=== PATIENT | female | born 1965 | race Caucasian/White ===

== ENCOUNTER 2017-08-03 10:32 | Observation (INO) | payer OTHER ==
[~2017-08-03] VITALS: Ht 170.2 cm; Wt 92.5 kg
[~2017-08-03 10:32] MED LIST: Z.0.NO CURRENT MEDS
[2017-08-03 10:45] VITALS: BP 155/77; PULSE 60; RESP 18; TEMP 97.9; O2SAT 100
--- NOTE | 2017-08-03 11:37 | PD ---
HPI Chief Complaint: Head Injury Time Seen by Provider: 11:28 Travel History International Travel<30 days: No Contact w/Intl Traveler<30days: No Traveled to known affect area: No History of Present Illness HPI Patient 52-year-old female presents emergency department for evaluation of head injury. 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 The history above was obtained with some effort as the patient has quite a bizarre affect and mental status. When asked when she initially had the shunt placed she speaks in relative terms and states it was the year after December 30, 2000. She is unable to say 2001 however. She states the shunt is still in place and continues to a knowledge that her shunt is still an even after her CAT scan does not show any CT evidence of her shunt still being in her brain. When asked to speak with the patient's son about her she was read several phone numbers and identified her own phone number is being her sounds. When I called this number she states that it was actually her and still confused as to why was calling her. When ultimately I was able to speak with her son about her he states that her memory has been going over the past few months, she is supposed to see a neurologist in the near future but does not have an appointment as of yet. She apparently goes on long drives and is losing her way at home as well as having some difficulty walking and not intermittent spasm of her left upper extremity. 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 She was treated with radiation and no surgical removal. [facility] Past Medical History Depression: Yes Hypertension: Yes Past Surgical History Neurologic Surgery: Yes (2001 BRAIN TUMOR- SHUNT/ RADIATION [place]) Social History Alcohol Use: No Tobacco Use: No Substance Use: No Allergies-Medications (Allergen,Severity, Reaction): Coded Allergies: No Known Allergies (Verified Allergy, Unknown, 08/03/17) Reported Meds & Prescriptions Reported Meds & Active Scripts Active No Active Prescriptions or Reported Medications Review of Systems Except as stated in HPI: all other systems reviewed are Neg Physical Exam Narrative GENERAL: Well-developed well-nourished no obvious distress SKIN: Focused skin assessment warm/dry. HEAD: Atraumatic. Normocephalic. EYES: Pupils equal and round. No scleral icterus. No injection or drainage. ENT: No nasal bleeding or discharge. Mucous membranes pink and moist. NECK: Trachea midline. No JVD. CARDIOVASCULAR: Regular rate and rhythm. No murmur appreciated. RESPIRATORY: No accessory muscle use. Clear to auscultation. Breath sounds equal bilaterally. GASTROINTESTINAL: Abdomen soft, non-tender, nondistended. Hepatic and splenic margins not palpable. MUSCULOSKELETAL: No obvious deformities. No clubbing. No cyanosis. No edema. NEUROLOGICAL: Awake and alert. Cranial nerves II through XII are grossly intact and nonfocal, 5 out of 5 strength in all 4 extremities. Patient startles easily when talked to almost like she is arousing from sleep, she has a spasm of her left upper extremity which is a fast which were lasting for fraction of a second. She is able to ambulate and does not have any cerebellar dysfunction that I can identify peer PSYCHIATRIC: Startles easily as above, somewhat difficult to obtain history from and oriented to person place and situation but not time. Data Data Last Documented VS Vital Signs Date Time Temp Pulse Resp B/P (MAP) Pulse Ox O2 Delivery O2 Flow Rate FiO2 08/03/17 14:00 52 16 148/77 (100) 97 Room Air 08/03/17 10:[address] Brain W/O Iv Contrast(Rout) (08/03/17 ) Shunt Series (08/03/17 ) Electrocardiogram (08/03/17 11:35) Complete Blood Count With Diff (08/03/17 11:35) Comprehensive Metabolic Panel (08/03/17 11:35) Prothrombin Time / Inr (Pt) (08/03/17 11:35) Act Partial Throm Time (Ptt) (08/03/17 11:35) Urinalysis - C+S If Indicated (08/03/17 11:35) Blood Glucose (08/03/17 11:35) Ecg Monitoring (08/03/17 11:35) Iv Access Insert/Monitor (08/03/17 11:35) Oximetry (08/03/17 11:35) Sodium Chloride 0.9% Flush (Ns Flush) (08/03/17 11:45) Drug Screen, Random Urine (08/03/17 11:35) Alcohol (Ethanol) (08/03/17 11:35) Mri Brain W&W/O Contrast (08/03/17 ) Admit Order (Ed Use Only) (08/03/17 ) Labs Laboratory Tests Test 08/03/17 12:10 08/03/17 14:19 White Blood Count 5.3 TH/MM3 Red Blood Count 4.23 MIL/MM3 Hemoglobin 13.1 GM/DL Hematocrit 37.1 % Mean Corpuscular Volume 87.7 FL Mean Corpuscular Hemoglobin 30.9 PG Mean Corpuscular Hemoglobin Concent 35.3 % Red Cell Distribution Width 13.1 % Platelet Count 238 TH/MM3 Mean Platelet Volume 8.6 FL Neutrophils (%) (Auto) 52.1 % Lymphocytes (%) (Auto) 34.2 % Monocytes (%) (Auto) 8.9 % Eosinophils (%) (Auto) 3.5 % Basophils (%) (Auto) 1.3 % Neutrophils # (Auto) 2.8 TH/MM3 Lymphocytes # (Auto) 1.8 TH/MM3 Monocytes # (Auto) 0.5 TH/MM3 Eosinophils # (Auto) 0.2 TH/MM3 Basophils # (Auto) 0.1 TH/MM3 CBC Comment DIFF FINAL Differential Comment Prothrombin Time 10.0 SEC Prothromb Time International Ratio 1.0 RATIO Activated Partial Thromboplast Time 24.5 SEC Blood Urea Nitrogen 9 MG/DL Creatinine 0.77 MG/DL Random Glucose 86 MG/DL Total Protein 7.8 GM/DL Albumin 3.7 GM/DL Calcium Level 9.1 MG/DL Alkaline Phosphatase 83 U/L Aspartate Amino Transf (AST/SGOT) 25 U/L Alanine Aminotransferase (ALT/SGPT) 28 U/L Total Bilirubin 0.4 MG/DL Sodium Level 140 MEQ/L Potassium Level 4.0 MEQ/L Chloride Level 106 MEQ/L Carbon Dioxide Level 27.7 MEQ/L Anion Gap 6 MEQ/L Estimat Glomerular Filtration Rate 78 ML/MIN Ethyl Alcohol Level LESS THAN 3 MG/DL Urine Color LIGHT-YELLOW Urine Turbidity HAZY Urine pH 8.0 Urine Specific [place] 1.011 Urine Protein NEG mg/dL Urine Glucose (UA) NEG mg/dL Urine Ketones NEG mg/dL Urine Occult Blood NEG Urine Nitrite NEG Urine Bilirubin NEG Urine Urobilinogen LESS THAN 2.0 MG/DL Urine Leukocyte Esterase NEG Urine RBC 3 /hpf Urine WBC 2 /hpf Urine Squamous Epithelial Cells <1 /hpf Urine Amorphous Sediment FEW Urine Mucus FEW /lpf Microscopic Urinalysis Comment CATH-CULT NOT IND Urine Opiates Screen NEG Urine Barbiturates Screen NEG Urine Amphetamines Screen NEG Urine Benzodiazepines Screen NEG Urine Cocaine Screen NEG Urine Cannabinoids Screen NEG MDM Medical Decision Making Medical Screen Exam Complete: Yes Emergency Medical Condition: Yes Differential Diagnosis Dementia, delirium, altered mental status, shunt malfunction. Narrative Course Patient was roomed in the emergency department, CT findings of the head show some dilation of the right ventricle which may be chronic, there is no intracranial portion of her shunt but evidence that it had been there prior. The neck chest abdomen portion of the shunt is still in place. MRI was ordered , patient still having somewhat bizarre recollection of events in her and her past my concern is for delirium versus dementia versus an intracranial abnormality. The patient was discussed with Dr. Lopez for observation status and consideration of neurology versus neurosurgery versus psychiatric consult and he is agreeable. Diagnosis Primary Impression: Altered mental status Admitting Information Admitting Physician Requests: Observation Scripts No Active Prescriptions or Reported Meds Condition: Stable Juan M Dunn MD Aug 03, 2017 11:37
[2017-08-03 11:40] VITALS: BP 179/68; PULSE 60; RESP 18; O2SAT 99
[2017-08-03] MEDS ORDERED: SODIUM CHLORIDE 0.9% FLUSH 10 ML FLUSH IV FLUSH PRN ×2 (11:45→15:45)
[2017-08-03 12:14] VITALS: BP 154/79; PULSE 51; RESP 18; O2SAT 99
[2017-08-03 12:25] LABS: AUTOMATED NEUTROPHIL # 2.8 TH/MM3 (1.8-7.7); BASOPHIL # 0.1 TH/MM3 (0-0.2); BASOPHIL % 1.3 % (0.0-2.0); EOSINOPHIL # 0.2 TH/MM3 (0-0.4); EOSINOPHIL % 3.5 % (0.0-4.0); HEMATOCRIT 37.1 % (35.0-46.0); HEMOGLOBIN 13.1 GM/DL (11.6-15.3); LYMPH % 34.2 % (9.0-44.0); LYMPHOCYTE # 1.8 TH/MM3 (1.0-4.8); MEAN CELL VOLUME 87.7 FL (80.0-100.0); MEAN CORPUSCULAR HEMOGLOBIN 30.9 PG (27.0-34.0); MEAN CORPUSCULAR HGB CONC 35.3 % (32.0-36.0); MEAN PLATELET VOLUME 8.6 FL (7.0-11.0); MONO % 8.9 % (0.0-8.0); MONOCYTE # 0.5 TH/MM3 (0-0.9); NEUT % 52.1 % (16.0-70.0); PLATELET COUNT 238 TH/MM3 (150-450); RED BLOOD COUNT 4.23 MIL/MM3 (4.00-5.30); RED CELL DISTRIBUTION WIDTH 13.1 % (11.6-17.2); WHITE BLOOD COUNT 5.3 TH/MM3 (4.0-11.0)
[2017-08-03 12:45] LABS: ALBUMIN 3.7 GM/DL (3.4-5.0); AST (GOT) 25 U/L (15-37); BICARBONATE 27.7 MEQ/L (21.0-32.0); BLOOD UREA NITROGEN 9 MG/DL (7-18); CALCIUM 9.1 MG/DL (8.5-10.1); CHLORIDE 106 MEQ/L (98-107); CREATININE 0.77 MG/DL (0.50-1.00); GLOMERULAR FILTRATION RATE 78 ML/MIN (>89); GLUCOSE,RANDOM 86 MG/DL (74-106); SODIUM (NA) 140 MEQ/L (136-145)
[2017-08-03 12:49] LABS: ALKALINE PHOSPHATASE 83 U/L (45-117); ALT (GPT) 28 U/L (10-53); TOTAL BILIRUBIN ADULT 0.4 MG/DL (0.2-1.0); TOTAL PROTEIN 7.8 GM/DL (6.4-8.2)
--- NOTE | 2017-08-03 13:09 | RADRPT ---
EXAM DATE/TIME: 08/03/2017 12:03 [facility] COMPARISON: CT BRAIN W/O CONTRAST, August 03, 2017, 12:57. INDICATIONS : Evaluate shunt, hit head MEDICAL HISTORY : None. SURGICAL HISTORY : None. ENCOUNTER: Initial ACUITY: 1 day PAIN SCORE: 0/10 LOCATION: Shunt FINDINGS: The intracranial portion of the patient's SPACE TECHNOLOGIST shunt has been removed. The shunt tubing is intact and unremarkable elsewhere, coiling into the pelvis with its tip on the ri ght side CONCLUSION: Intracranial portion of the patient's SPACE TECHNOLOGIST shunt has been removed. The shunt tubing is otherwise unrema rkable Ciro Whyte MD on August 03, 2017 at 13:05 Board Certified Radiologist. This report was verified electronically.
--- NOTE | 2017-08-03 13:15 | RADRPT ---
EXAM DATE/TIME: 08/03/2017 12:57 [facility] COMPARISON: No previous studies available for comparison. INDICATIONS : Headache,history of shunt,hit head on shelf RADIATION DOSE: 36.18 CTDIvol (mGy) MEDICAL HISTORY : Hypertension. Brain tumor SURGICAL HISTORY : Shunt ENCOUNTER: Initial ACUITY: 1 day PAIN SCALE: 5/10 LOCATION: cranial TECHNIQUE: Multiple contiguous axial images were obtained of the head. Using automated exposure control and adj ustment of the mA and/or kV according to patient size, radiation dose was kept as low as reasonably a chievable to obtain optimal diagnostic quality images. DICOM format image data is available electro nically for review and comparison. FINDINGS: There is a tract of gliosis associated with previous right frontal ventriculostomy. Ventriculostomy t ubing has been removed. There is mild asymmetric size of the lateral ventricles which may be a chroni c appearance. No significant ventricular dilatation. There some speckled calcifications in the centra l brainstem at the lower midbrain, slightly eccentric to the left. Significance of this finding is un determined. No significant edema appreciated. There is no evidence of intracranial hemorrhage. There is nothing to suggest acute infarction. Nothing to suggest acute brain injury. The calvarium is other miller intact. Visualized sinuses and mastoids are clear. CONCLUSION: The patient's ECONOMIC FORECASTER shunt tubing has been removed Nondilated ventricles with minimal lateral ventricular asymmetry which may be a chronic appearance. Speckled calcifications in the upper brainstem which are undetermined significance. Comparison to guy or exams if available would be optimal. The appearance is fairly benign, however vascular or neoplast ic pathology cannot be excluded in isolation Ciro Whyte MD on August 03, 2017 at 13:09 Board Certified Radiologist. This report was verified electronically.
[2017-08-03 14:00] VITALS: BP 148/77; PULSE 52; RESP 16; O2SAT 97
[2017-08-03 14:45] LABS: AMORPHOUS SEDIMENT, URINE FEW; BILIRUBIN, URINE NEG (NEG); BLOOD, URINE NEG (NEG); GLUCOSE,URINE NEG (NEG); KETONE, URINE NEG (NEG); MUCUS URINE FEW /lpf (OCC); NITRITE,URINE NEG (NEG); SQUAMOUS EPITHELIAL CELL URINE <1 /hpf (0-5); URINE COLOR LIGHT-YELLOW (YELLW/STRAW); URINE LEUKOCYTE ESTERASE NEG (NEG)
[2017-08-03] MEDS ORDERED: GADODIAMIDE PF 287 MG/ML 20 ML VIAL (for RAD MRI) IVCONTRAST ONE (15:27)
[2017-08-03] MEDS ORDERED: ENALAPRILAT 1.25 MG/ML VIAL IV PRN (15:45)
[2017-08-03] MEDS ORDERED: MAGNESIUM HYDROXIDE SUSP 30 ML CUP PO PRN (15:45)
[2017-08-03] MEDS ORDERED: ACETAMINOPHEN 325 MG TAB PO PRN (15:45)
[2017-08-03] MEDS ORDERED: ONDANSETRON HCL 4 MG/2 ML VIAL IVP PRN (15:45)
[2017-08-03] MEDS ORDERED: cloNIDine HCL 0.2 MG TAB PO PRN ×2 (15:45→21:45)
[2017-08-03] MEDS ORDERED: NALOXONE HCL 0.4 MG/ML AMP IV PUSH PRN (15:45)
--- NOTE | 2017-08-03 16:06 | RADRPT ---
EXAM DATE/TIME: 08/03/2017 15:11 [facility] COMPARISON: CT BRAIN W/O CONTRAST, August 03, 2017, 12:57. INDICATIONS : Confusion, dizziness and visual disturbances s/p fall. CONTRAST: 16 cc Omniscan (gadodiamide) IV MEDICAL HISTORY : Radiation for brain tumor, unspecified. SURGICAL HISTORY : None. ENCOUNTER: Initial ACUITY: 1 day PAIN SCORE: 2/10 LOCATION: cranial TECHNIQUE: Multiplanar, multisequence MRI of the brain was performed both prior to and following the administrat ion of paramagnetic contrast. FINDINGS: There is some gliosis in the right frontal region at site of previous ventriculostomy which has been removed. There is mild lateral ventricular asymmetry which appears benign and potentially chronic dev elopmental. The brainstem is benign in appearance with no evidence of edema or abnormal enhancement. No morphologic deformity is present. There is no evidence of brain mass or hemorrhage. There is nothing to suggest acute infarction. There is mucosal disease occasional facial sinuses and in the mastoids bilaterally. CONCLUSION: No acute intracranial findings suspected. Ciro Whyte MD on August 03, 2017 at 16:00 Board Certified Radiologist. This report was verified electronically.
--- NOTE | 2017-08-03 16:26 | HHI.HP ---
HPI Service [facility] Hospitalists Primary Care Physician Non-Staff Admission Diagnosis Altered mental status Chief Complaint: light headed Travel History International Travel<30 Days: No Contact w/Intl Traveler <30 Da: No Traveled to Known Affected Are: No History of Present Illness This a 52-year-old female patient with past medical history which includes hypertension and brain tumor 2001. In 2001 patient was found to have a 1 cm enhancing mass and posterior third ventricle which was not biopsied biopsy due to the location. Patient underwent an emergent right frontal ventriculostomy [place] [address] Mina then was treated with radiation therapy. Patient presented to the emergency department today after she, "stood up and hit my head on a metal shelf." Patient was at work today when she bent down to put sheets on a lower shelf then hit her head as she was standing up. After patient hit her head she reports feeling, "oozy." Patient describes oozy as feeling light headed. There is concerns of altered mental status in the emergency department. Review of outpatient records July 24, 2017 patient reported memory problems difficulties driving where she would drive herself places get lost and had difficulty finding her way back home. Patient at that time patient also complained of feeling off balance hobbling when she walks and experiencing jerking motion of her head. Patient was prescribed antidepressants which she did not take due to fear this would make her symptoms worse. Patient offers a consolation of concerns including memory problems feeling off balance when she walks which is worse at night or in low light, decrease in peripheral vision, general ticks and experiencing jerking motion of her head. In talking with patient and her son these symptoms have been chronic for years but seem to be getting worse over the past 1-2 years. Patient is however able to drive to the grocery store, drive to work and carry out her assignments at work. Patient denies offer no acute concerns at this time. The oozy feeling lasted only a matter of seconds to minute. Patient also denies SOB, CP, N/V/D/C, fevers or chills. Review of Systems Constitutional: COMPLAINS OF: Dizziness, DENIES: Fever, Chills Eyes: COMPLAINS OF: Vision loss (decreased peripheral vision over the years), DENIES: Blurred vision, Diplopia Ears, nose, mouth, throat: DENIES: Tinnitus, Hearing loss Respiratory: DENIES: Cough, Sputum production, Shortness of breath Cardiovascular: DENIES: Chest pain, Palpitations, Lower Extremity Edema Gastrointestinal: DENIES: Abdominal pain, Constipation, Diarrhea, Nausea, Vomiting Neurologic: COMPLAINS OF: Abnormal gait (described as wobbling), Speech Problems (trouble remembering words occatinoally chronic), Tremor (occational blinking and head tremor for years) Psychiatric: COMPLAINS OF: Anxiety, Confusion, Depression Past Family Social History Past Medical History HTN no longer on medication brain tumor treated with shunt and radiation in 2001 Past Surgical History brain tumor treated with shunt and radiation in 2001 Reported Medications no daily medication Allergies: Coded Allergies: No Known Allergies (Verified Allergy, Unknown, 08/03/17) Family History father has Alzheimer's disease Social History lives with son, daughter in law and granddaughter rare ETOH use lifelong non smoker denies illicit drug use Physical Exam Vital Signs Vital Signs Date Time Temp Pulse Resp B/P (MAP) Pulse Ox O2 Delivery O2 Flow Rate FiO2 08/03/17 16:11 08/03/17 14:00 52 16 148/77 (100) 97 Room Air 08/03/17 12:14 51 18 154/79 (104) 99 Room Air 08/03/17 11:40 60 18 179/68 (105) 99 Room Air 08/03/17 10:45 97.9 60 18 155/77 (103) 100 Physical Exam GENERAL: This is a well-nourished, well-developed patient, in no apparent distress. SKIN: No rashes, ecchymoses or lesions. Cool and dry. HEAD: Atraumatic. Normocephalic. No temporal or scalp tenderness. EYES: Pupils equal round and reactive. Extraocular motions intact. No scleral icterus. No injection or drainage. ENT: Nose without bleeding, purulent drainage or septal hematoma. Throat without erythema, tonsillar hypertrophy or exudate. Uvula midline. Airway patent. NECK: Trachea midline. No JVD or lymphadenopathy. Supple, nontender, no meningeal signs. CARDIOVASCULAR: Regular rate and rhythm without murmurs, gallops, or rubs. RESPIRATORY: Clear to auscultation. Breath sounds equal bilaterally. No wheezes , rales, or rhonchi. GASTROINTESTINAL: Abdomen soft, non-tender, nondistended. No hepato-splenomegaly , or palpable masses. No guarding. MUSCULOSKELETAL: Extremities without clubbing, cyanosis, or edema. No joint tenderness, effusion, or edema noted. No calf tenderness. Negative Homans sign bilaterally. NEUROLOGICAL: Awake and alert. Cranial nerves II through XII intact. Motor and sensory grossly within normal limits. Five out of 5 muscle strength in all muscle groups. Normal speech. Laboratory Laboratory Tests Test 08/03/17 12:10 08/03/17 14:19 White Blood Count 5.3 Red Blood Count 4.23 Hemoglobin 13.1 Hematocrit 37.1 Mean Corpuscular Volume 87.7 Mean Corpuscular Hemoglobin 30.9 Mean Corpuscular Hemoglobin Concent 35.3 Red Cell Distribution Width 13.1 Platelet Count 238 Mean Platelet Volume 8.6 Neutrophils (%) (Auto) 52.1 Lymphocytes (%) (Auto) 34.2 Monocytes (%) (Auto) 8.9 Eosinophils (%) (Auto) 3.5 Basophils (%) (Auto) 1.3 Neutrophils # (Auto) 2.8 Lymphocytes # (Auto) 1.8 Monocytes # (Auto) 0.5 Eosinophils # (Auto) 0.2 Basophils # (Auto) 0.1 CBC Comment DIFF FINAL Differential Comment Prothrombin Time 10.0 Prothromb Time International Ratio 1.0 Activated Partial Thromboplast Time 24.5 Blood Urea Nitrogen 9 Creatinine 0.77 Random Glucose 86 Total Protein 7.8 Albumin 3.7 Calcium Level 9.1 Alkaline Phosphatase 83 Aspartate Amino Transf (AST/SGOT) 25 Alanine Aminotransferase (ALT/SGPT) 28 Total Bilirubin 0.4 Sodium Level 140 Potassium Level 4.0 Chloride Level 106 Carbon Dioxide Level 27.7 Anion Gap 6 Estimat Glomerular Filtration Rate 78 Ethyl Alcohol Level LESS THAN 3 Urine Color LIGHT-YELLOW Urine Turbidity HAZY Urine pH 8.0 Urine Specific [place] 1.011 Urine Protein NEG Urine Glucose (UA) NEG Urine Ketones NEG Urine Occult Blood NEG Urine Nitrite NEG Urine Bilirubin NEG Urine Urobilinogen LESS THAN 2.0 Urine Leukocyte Esterase NEG Urine RBC 3 Urine WBC 2 Urine Squamous Epithelial Cells <1 Urine Amorphous Sediment FEW Urine Mucus FEW Microscopic Urinalysis Comment CATH-CULT NOT IND Urine Opiates Screen NEG Urine Barbiturates Screen NEG Urine Amphetamines Screen NEG Urine Benzodiazepines Screen NEG Urine Cocaine Screen NEG Urine Cannabinoids Screen NEG Result Diagram: 08/03/17 1210 08/03/17 1210 Caprini VTE Risk Assessment Caprini VTE Risk Assessment: No/Low Risk (score <= 1) Caprini Risk Assessment Model Point Value = 1 Point Value = 2 Point Value = 3 Point Value = 5 Age 41-60 Minor surgery BMI > 25 kg/m2 Swollen legs Varicose veins or History of unexplained or recurrent spontaneous Oral contraceptives or hormone replacement Sepsis (< 1 month) Serious lung disease, including pneumonia (< 1 month) Abnormal pulmonary function Acute myocardial infarction Congestive heart failure (< 1 month) History of inflammatory bowel disease Medical patient at bed rest Age 61-74 Arthroscopic surgery Major open surgery (> 45 min) Laparoscopic surgery (> 45 min) Malignancy Confined to bed (> 72 hours) Immobilizing plaster cast Central venous access Age >= 75 History of VTE Family history of VTE Factor V Leiden Prothrombin [id number] Lupus anticoagulant Anticardiolipin antibodies Elevated serum homocysteine Heparin-induced thrombocytopenia Other congenital or acquired thrombophilia Stroke (< 1 month) Elective arthroplasty Hip, pelvis, or leg fracture Acute spinal cord injury (< 1 month) Prophylaxis Regimen Total Risk Factor Score Risk Level Prophylaxis Regimen 0-1 Low Early ambulation 2 Moderate Order ONE of the following: *Sequential Compression Device (SCD) *Heparin 5000 units SQ BID 3-4 Higher Order ONE of the following medications: *Heparin 5000 units SQ TID *Enoxaparin/Lovenox 40 mg SQ daily (WT < 150 kg, CrCl > 30 mL/min) *Enoxaparin/Lovenox 30 mg SQ daily (WT < 150 kg, CrCl > 10-29 mL/min) *Enoxaparin/Lovenox 30 mg SQ BID (WT < 150 kg, CrCl > 30 mL/min) AND/OR *Sequential Compression Device (SCD) 5 or more Highest Order ONE of the following medications: *Heparin 5000 units SQ TID (Preferred with Epidurals) *Enoxaparin/Lovenox 40 mg SQ daily (WT < 150 kg, CrCl > 30 mL/min) *Enoxaparin/Lovenox 30 mg SQ daily (WT < 150 kg, CrCl > 10-29 mL/min) *Enoxaparin/Lovenox 30 mg SQ BID (WT < 150 kg, CrCl > 30 mL/min) AND *Sequential Compression Device (SCD) Assessment and Plan Problem List: (1) Altered mental status ICD Codes: R41.82 - Altered mental status, unspecified Plan: This is a 52 year old female with a past medical which include hypertension (no longer on medication) and brain tumor 2001. In 2001 patient was found to have a 1 cm enhancing mass and posterior third ventricle which was not biopsied biopsy due to the location. Patient underwent an emergent right frontal ventriculostomy [place] [address] Mina then was treated with radiation therapy. Patient presented to the emergency department today after she, "stood up and hit my head on a metal shelf," while at work. Patient offers a consolation of concerns including memory problems feeling off balance when she walks which is worse at night or in low light, decrease in peripheral vision, general ticks and experiencing jerking motion of her head. In talking with patient and her son these symptoms have been chronic for years but seem to be getting worse over the past 1-2 years. Patient is however able to drive to the grocery store, drive to work and carry out her assignments at work. - CT Head revealed patient's DRUM MAKER shunt tubing has been removed nondilated ventricles and minimal lateral ventricular asymmetry which may be a chronic appearance. Strict pelvic calcifications in the upper brainstem which are undetermined significance. The appearance is fairly benign however ventricular neoplastic pathology cannot be excluded in isolation. - Shunt study conclusion intracranial portion of the patient's DRUM MAKER shunt has been removed. The shunt tubing is otherwise unremarkable - Brain MRI reveals no acute intracranial findings - Ammonia, folate acid, TSH, free T4, RPR, CBC and BMP - EEG - Consult neurology (2) HTN (hypertension) ICD Codes: I10 - Essential (primary) hypertension Plan: Add lisinopril 10 mg BID clonidine and Vasotec as needed Assessment and Plan Patient examined. Assessment and plan formulated with Lara Hartman PA-C. I agree with the above. Lara Hartman Aug 03, 2017 16:26 See Lopez DO Aug 05, 2017 10:38
--- NOTE | 2017-08-03 17:09 | RADRPT ---
EXAM DATE/TIME: 08/03/2017 15:42 [facility] COMPARISON: No previous studies available for comparison. INDICATIONS : Cough MEDICAL HISTORY : Radiation for brain tumor, unspecified SURGICAL HISTORY : Shunt ENCOUNTER: Initial ACUITY: 1 day PAIN SCORE: 0/10 LOCATION: Bilateral chest FINDINGS: A single view of the chest demonstrates the lungs to be symmetrically aerated without evidence of mas s, infiltrate or effusion. The cardiomediastinal contours are unremarkable. Osseous structures are intact. CONCLUSION: No acute disease. Ciro Whyte MD on August 03, 2017 at 17:07 Board Certified Radiologist. This report was verified electronically.
[2017-08-03 20:01] LABS: FOLATE GREATER THAN 20.0 NG/ML (3.1-17.5)
[2017-08-03] MEDS: SODIUM CHLORIDE 0.9% FLUSH 10 ML FLUSH IV FLUSH SCH (21:00)
[2017-08-03] MEDS: LISINOPRIL 10 MG TAB PO SCH (21:48)
[2017-08-03 22:00] VITALS: BP 111/59; PULSE 66; RESP 18; TEMP 98.2; O2SAT 98
[2017-08-04 00:59] VITALS: BP 115/60; PULSE 60; RESP 18; TEMP 97.9; O2SAT 98
[2017-08-04 03:55] VITALS: BP 125/70; PULSE 49; RESP 18; TEMP 98.1; O2SAT 98
[2017-08-04 07:08] LABS: AUTOMATED NEUTROPHIL # 2.9 TH/MM3 (1.8-7.7); BASOPHIL # 0.1 TH/MM3 (0-0.2); EOSINOPHIL # 0.4 TH/MM3 (0-0.4); EOSINOPHIL % 6.9 % (0.0-4.0); HEMATOCRIT 39.5 % (35.0-46.0); HEMOGLOBIN 13.3 GM/DL (11.6-15.3); LYMPH % 28.2 % (9.0-44.0); LYMPHOCYTE # 1.5 TH/MM3 (1.0-4.8); MEAN CELL VOLUME 87.8 FL (80.0-100.0); MEAN CORPUSCULAR HEMOGLOBIN 29.5 PG (27.0-34.0); MEAN CORPUSCULAR HGB CONC 33.6 % (32.0-36.0); MEAN PLATELET VOLUME 8.6 FL (7.0-11.0); MONO % 9.1 % (0.0-8.0); MONOCYTE # 0.5 TH/MM3 (0-0.9); NEUT % 54.8 % (16.0-70.0); PLATELET COUNT 244 TH/MM3 (150-450); RED CELL DISTRIBUTION WIDTH 13.3 % (11.6-17.2); WHITE BLOOD COUNT 5.3 TH/MM3 (4.0-11.0)
[2017-08-04 07:22] VITALS: BP 128/73; PULSE 60; RESP 16; TEMP 98; O2SAT 98
[2017-08-04 07:35] LABS: BICARBONATE 27.2 MEQ/L (21.0-32.0); CALCIUM 8.7 MG/DL (8.5-10.1); CREATININE 0.79 MG/DL (0.50-1.00)
--- NOTE | 2017-08-04 07:57 | HHI.PR ---
Subjective Remarks No new concerns asking to go home Objective Vitals Vital Signs Date Time Temp Pulse Resp B/P (MAP) Pulse Ox O2 Delivery O2 Flow Rate FiO2 08/04/17 07:22 98.0 60 16 128/73 (91) 98 08/04/17 03:55 98.1 49 18 125/70 (88) 98 08/04/17 00:59 97.9 60 18 115/60 (78) 98 08/03/17 22:00 98.2 66 18 111/59 (76) 98 08/03/17 16:11 08/03/17 14:00 52 16 148/77 (100) 97 Room Air 08/03/17 12:14 51 18 154/79 (104) 99 Room Air 08/03/17 11:40 60 18 179/68 (105) 99 Room Air 08/03/17 10:45 97.9 60 18 155/77 (103) 100 Result Diagram: 08/04/17 0637 08/04/17 0637 Other Results Laboratory Tests Test 08/03/17 12:10 08/03/17 14:19 08/03/17 18:45 08/04/17 06:37 White Blood Count 5.3 TH/MM3 5.3 TH/MM3 Red Blood Count 4.23 MIL/MM3 4.50 MIL/MM3 Hemoglobin 13.1 GM/DL 13.3 GM/DL Hematocrit 37.1 % 39.5 % Mean Corpuscular Volume 87.7 FL 87.8 FL Mean Corpuscular Hemoglobin 30.9 PG 29.5 PG Mean Corpuscular Hemoglobin Concent 35.3 % 33.6 % Red Cell Distribution Width 13.1 % 13.3 % Platelet Count 238 TH/MM3 244 TH/MM3 Mean Platelet Volume 8.6 FL 8.6 FL Neutrophils (%) (Auto) 52.1 % 54.8 % Lymphocytes (%) (Auto) 34.2 % 28.2 % Monocytes (%) (Auto) 8.9 % 9.1 % Eosinophils (%) (Auto) 3.5 % 6.9 % Basophils (%) (Auto) 1.3 % 1.0 % Neutrophils # (Auto) 2.8 TH/MM3 2.9 TH/MM3 Lymphocytes # (Auto) 1.8 TH/MM3 1.5 TH/MM3 Monocytes # (Auto) 0.5 TH/MM3 0.5 TH/MM3 Eosinophils # (Auto) 0.2 TH/MM3 0.4 TH/MM3 Basophils # (Auto) 0.1 TH/MM3 0.1 TH/MM3 CBC Comment DIFF FINAL DIFF FINAL Differential Comment Prothrombin Time 10.0 SEC Prothromb Time International Ratio 1.0 RATIO Activated Partial Thromboplast Time 24.5 SEC Blood Urea Nitrogen 9 MG/DL 12 MG/DL Creatinine 0.77 MG/DL 0.79 MG/DL Random Glucose 86 MG/DL 85 MG/DL Total Protein 7.8 GM/DL Albumin 3.7 GM/DL Calcium Level 9.1 MG/DL 8.7 MG/DL Alkaline Phosphatase 83 U/L Aspartate Amino Transf (AST/SGOT) 25 U/L Alanine Aminotransferase (ALT/SGPT) 28 U/L Total Bilirubin 0.4 MG/DL Sodium Level 140 MEQ/L 140 MEQ/L Potassium Level 4.0 MEQ/L 4.1 MEQ/L Chloride Level 106 MEQ/L 106 MEQ/L Carbon Dioxide Level 27.7 MEQ/L 27.2 MEQ/L Anion Gap 6 MEQ/L 7 MEQ/L Estimat Glomerular Filtration Rate 78 ML/MIN 76 ML/MIN Ethyl Alcohol Level LESS THAN 3 MG/DL Urine Color LIGHT-YELLOW Urine Turbidity HAZY Urine pH 8.0 Urine Specific [place] 1.011 Urine Protein NEG mg/dL Urine Glucose (UA) NEG mg/dL Urine Ketones NEG mg/dL Urine Occult Blood NEG Urine Nitrite NEG Urine Bilirubin NEG Urine Urobilinogen LESS THAN 2.0 MG/DL Urine Leukocyte Esterase NEG Urine RBC 3 /hpf Urine WBC 2 /hpf Urine Squamous Epithelial Cells <1 /hpf Urine Amorphous Sediment FEW Urine Mucus FEW /lpf Microscopic Urinalysis Comment CATH-CULT NOT IND Urine Opiates Screen NEG Urine Barbiturates Screen NEG Urine Amphetamines Screen NEG Urine Benzodiazepines Screen NEG Urine Cocaine Screen NEG Urine Cannabinoids Screen NEG Ammonia 31 MCMOL/L Vitamin B12 Level 691 PG/ML Folate GREATER THAN 20.0 NG/ML Free Thyroxine 0.80 NG/DL Thyroid Stimulating Hormone 3rd Gen 1.100 uIU/ML Imaging Last Impressions Chest X-Ray 08/03/17 1536 Signed Impressions: Service Date/Time: Thursday, August 03, 2017 15:42 - CONCLUSION: No acute disease. 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 The shunt tubing is otherwise unremarkable Ciro Whyte MD Head CT 08/03/17 0000 Signed Impressions: Service Date/Time: Thursday, August 03, 2017 12:57 - CONCLUSION: The patient's HEAT PLANT SPECIALIST shunt tubing has been removed Nondilated ventricles with minimal lateral ventricular asymmetry which may be a chronic appearance. Speckled calcifications in the upper brainstem which are undetermined significance. Comparison to prior exams if available would be optimal. The appearance is fairly benign, however vascular or neoplastic pathology cannot be excluded in isolation Ciro Whyte MD Brain MRI 08/03/17 0000 Signed Impressions: Service Date/Time: Thursday, August 03, 2017 15:11 - CONCLUSION: No acute intracranial findings suspected. Ciro Whyte MD Objective Remarks GENERAL: This is a well-nourished, well-developed patient, in no apparent distress. CARDIOVASCULAR: Regular rate and rhythm RESPIRATORY: Clear to auscultation. Breath sounds equal bilaterally. GASTROINTESTINAL: Abdomen soft, non-tender, nondistended. Normal active bowel sounds MUSCULOSKELETAL: Extremities without clubbing, cyanosis, or edema. NEURO: Alert & Oriented. Moves all ext x4 A/P Problem List: (1) Altered mental status ICD Codes: R41.82 - Altered mental status, unspecified Plan: This is a 52 year old female with a past medical which include hypertension (no longer on medication) and brain tumor 2001. In 2001 patient was found to have a 1 cm enhancing mass and posterior third ventricle which was not biopsied biopsy due to the location. Patient underwent an emergent right frontal ventriculostomy [place] [address] Mina then was treated with radiation therapy. Patient presented to the emergency department today after she, "stood up and hit my head on a metal shelf," while at work. Patient offers a consolation of concerns including memory problems feeling off balance when she walks which is worse at night or in low light, decrease in peripheral vision, general ticks and experiencing jerking motion of her head. In talking with patient and her son these symptoms have been chronic for years but seem to be getting worse over the past 1-2 years. Patient is however able to drive to the grocery store, drive to work and carry out her assignments at work. - CT Head revealed patient's HEAT PLANT SPECIALIST shunt tubing has been removed nondilated ventricles and minimal lateral ventricular asymmetry which may be a chronic appearance. Strict pelvic calcifications in the upper brainstem which are undetermined significance. The appearance is fairly benign however ventricular neoplastic pathology cannot be excluded in isolation. - Shunt study conclusion intracranial portion of the patient's HEAT PLANT SPECIALIST shunt has been removed. The shunt tubing is otherwise unremarkable - Brain MRI reveals no acute intracranial findings - Ammonia 33, folate > 20.0, TSH 1.1, free T4 0.8, RPR non-reactive, CBC and BMP unremarkable - EEG - Consult neurology, appreciate input - Consult psych, appreciate input Update: Discussed case with Dr. Brownlee patient does not need inpatient psych hospitalization. Patient does likely need antidepressants. Patient can follow up with PCP for depression management outpatient. EEG completed but not yet resulted, patient to follow-up with Dr. Small next week for results and further management Patient cleared for DC per neurology Patient adamantly asking to go home Will DC patient home in stable condition on regular diet as tolerated with instructions to follow up with PCP Dr. Nguyễn and Dr. Small (2) HTN (hypertension) ICD Codes: I10 - Essential (primary) hypertension Plan: Add lisinopril 10 mg BID while in hospital clonidine and Vasotec as needed elevated BP possibly secondary to anxiety of being in hospital/ acute event will DC on no blood pressure medication patient to follow up with PCP for BP monitoring and further BP management Lara Hartman Aug 04, 2017 07:57 Manuel Augustine MD Aug 04, 2017 12:28
--- NOTE | 2017-08-04 08:16 | PD.CONS ---
History of Present Illness Service Neurology Consult Requested By medical Reason for Consult confusion Primary Care Physician Non-Staff History of Present Illness 52-year-old f admitted for possible head injury. hit her head on a shelf at work and states she was told to come to the er for further evaluation. slept well. denies any pressley, neck pain focal weakness. had head tic x years. wants to go home. mri brain no acute lesion. Review of Systems as above and admit hp Past Family Social History Past Medical History HTN no longer on medication brain tumor treated with shunt and radiation in 2001 Past Surgical History brain tumor treated with shunt and radiation in 2001' Reported Medications none Allergies: Coded Allergies: No Known Allergies (Verified Allergy, Unknown, 08/03/17) Family History father has Alzheimer's disease Social History no tob use. rare etoh denies illicit drug use Review of Systems All other ROS: ROS reviewed as documented in chart Past Family Social History Allergies: Coded Allergies: No Known Allergies (Verified Allergy, Unknown, 08/03/17) Active Ordered Medications Current Medications Medications (Trade) Dose Ordered Sig/Drea Route Start Time Stop Time Status Last Admin (NS Flush) 2 ml UNSCH PRN IV FLUSH 08/03/17 11:45 (NS Flush) 2 ml UNSCH PRN IV FLUSH 08/03/17 15:45 (NS Flush) 2 ml BID IV FLUSH 08/03/17 21:00 (Tylenol) 650 mg Q4H PRN PO 08/03/17 15:45 (Zofran Inj) 4 mg Q6H PRN IVP 08/03/17 15:45 (Narcan Inj) 0.4 mg UNSCH PRN IV PUSH 08/03/17 15:45 (Milk Of Magnesia Liq) 30 ml Q12H PRN PO 08/03/17 15:45 (Vasotec Inj) 1.25 mg Q6H PRN IV 08/03/17 15:45 (Prinivil) 10 mg Q12HR PO 08/03/17 21:00 08/03/17 21:48 (Catapres) 0.1 mg Q6H PRN PO 08/03/17 21:45 Exam I&O / VS Vital Signs Date Time Temp Pulse Resp B/P (MAP) Pulse Ox O2 Delivery O2 Flow Rate FiO2 08/04/17 07:22 98.0 60 16 128/73 (91) 98 08/04/17 03:55 98.1 49 18 125/70 (88) 98 08/04/17 00:59 97.9 60 18 115/60 (78) 98 08/03/17 22:00 98.2 66 18 111/59 (76) 98 08/03/17 16:11 08/03/17 14:00 52 16 148/77 (100) 97 Room Air 08/03/17 12:14 51 18 154/79 (104) 99 Room Air 08/03/17 11:40 60 18 179/68 (105) 99 Room Air 08/03/17 10:45 97.9 60 18 155/77 (103) 100 General: Alert and Oriented, No acute distress Eye: EOMI Respiratory: Non-labored respirations Cardiology: Normal rate Neurologic: Alert, Oriented, Normal sensory, Normal motor, No focal defects, CN II-XII intact, Normal DTR's Psychiatric: Cooperative Exam Comments ox 3, follows, holding on to roseanne bear, no aphasia, eomi, ou 3-2mm, face sym, crisostomo to gravity, no drift Review/Management Diagnosis/Plan: (1) Head injury due to trauma ICD Codes: S09.90XA - Unspecified injury of head, initial encounter Status: Acute Plan: scans negative exam non-focal can return back to work from my standpoint can be seen outpatient for further tx of tic if she desires sign off Problem Qualifiers (1) Head injury due to trauma: Qualified Codes: S09.90XA - Unspecified injury of head, initial encounter Jay Small MD Aug 04, 2017 08:16
[2017-08-04] MEDS: SODIUM CHLORIDE 0.9% FLUSH 10 ML FLUSH IV FLUSH SCH (09:54)
[2017-08-04] MEDS: LISINOPRIL 10 MG TAB PO SCH (09:54)
[2017-08-04] MEDS ORDERED: LISI10TA3 PO (10:10)
--- NOTE | 2017-08-04 10:36 | EKG ---
Date Performed: 08/03/2017 Time Performed: 11:46:12 PTAGE: 52 years EKG: SINUS BRADYCARDIA BORDERLINE ECG Since the PREVIOUS TRACING , no significant change noted PREVIOUS TRACIN01/20/2008 14.08 DOCTOR: Samir Ordoñez Interpretating Date/Time 08/04/2017 10:32:53
--- NOTE | 2017-08-04 10:36 | EKG ---
Date Performed: 08/03/2017 Time Performed: 21:41:11 PTAGE: 52 years EKG: Sinus rhythm NORMAL ECG Since the PREVIOUS TRACING , no significant change noted PREVIOUS TRACIN08/03/2017 11.46 DOCTOR: Samir Ordoñez Interpretating Date/Time 08/04/2017 10:32:44
--- NOTE | 2017-08-04 12:19 | HHI.DCPOC ---
Discharge Care Plan Diagnosis: (1) Head injury due to trauma (2) HTN (hypertension) (3) Altered mental status Goals to Promote Your Health * To prevent worsening of your condition and complications * To maintain your health at the optimal level Directions to Meet Your Goals Take your medications as prescribed Follow your dietary instruction Follow activity as directed Keep your appointments as scheduled Take your immunizations and boosters as scheduled If your symptoms worsen call your PCP, if no PCP go to Urgent Care Center or Emergency Room Smoking is Dangerous to Your Health. Avoid second hand smoke Call the 24-hour hour crisis hotline for domestic abuse at Lara Hartman Aug 04, 2017 12:19
--- NOTE | 2017-08-04 12:44 | MG ---
cc: Cheryl Christopher MD REFERRING PHYSICIAN: Dr. Lopez . 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 The patient is initially awake and there are low-amplitude beta rhythms intermixed with low to mid amplitude 10-14 per second alpha activity posteriorly. There is some drowsiness and some theta activity seen. Later on, there are more widespread beta rhythms indicating a more sustained sleep recording. Hyperventilation was unremarkable. Photic stimulation also showed no abnormality. INTERPRETATION: Normal awake and sleep electroencephalogram. Cheryl Christopher MD OFC/DL , 12:31 PM , 12:43 PM
--- NOTE | 2017-08-04 12:51 | PD.PSY.CON ---
Provisional Diagnosis Admission Date Aug 03, 2017 at 14:28 [place] I. Major depressive disorder, recurrent, severe, without psychosis, [place] II. Deferred History of Present Illness Service Psychiatry Consult Requested By ER Reason for Consult Depression Primary Care Physician Non-Staff HPI Patient was seen this morning at 7:30 AM The patient is a 52 year old woman, domiciled with her son, single, employed, with psychiatric history of depression, no prepsychotic hospitalizations, no previous suicide attempts, with a past medical which include hypertension and brain tumor 2001. In 2001 patient was found to have a 1 cm enhancing mass and posterior third ventricle which was not biopsied biopsy due to the location. Patient underwent an emergent right frontal ventriculostomy [place] [address] Mina then was treated with radiation therapy. Patient presented to the emergency department today after she, "stood up and hit my head on a metal shelf," while at work. Patient offers a consolation of concerns including memory problems feeling off balance when she walks which is worse at night or in low light, decrease in peripheral vision, general ticks and experiencing jerking motion of her head. In talking with patient and her son these symptoms have been chronic for years but seem to be getting worse over the past 1-2 years. 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 Strict pelvic calcifications in the upper brainstem which are undetermined significance. The appearance is fairly benign however ventricular neoplastic pathology cannot be excluded in isolation. Consulted to psychiatry due to depressive symptoms. On psychiatric evaluation the patient is calm, cooperative , pleasant. She reports that today she is feeling much better. She says that her mood is 5/10, compared with yesterday 3. Patient reports that she has been stressed due to her medical situation, and due to the fact that her house need a lot of repairs. Other than that, the patient denies hopelessness, she denies helplessness, she denies anhedonia, she denies suicidal and homicidal ideation. She does report difficulty sleeping at night and poor appetite. She is oriented 3, she is logical, coherent and relevant. Denies the use of alcohol and illegal drugs. Patient was diagnosed with depression in the past, she took antidepressant for certain time, improved but he stopped taking the medication. Review of Systems Constitutional: DENIES: Diaphoretic episodes, Fatigue, Fever, Weight gain, Weight loss, Chills, Dizziness, Change in appetite, Night Sweats Endocrine: DENIES: Abnorml menstrual pattern, Heat/cold intolerance, Polydipsia , Polyuria, Polyphagia Eyes: DENIES: Blurred vision, Diplopia, Eye inflammation, Eye pain, Vision loss , Photosensitivity, Double Vision Ears, nose, mouth, throat: DENIES: Tinnitus, Hearing loss, Vertigo, Nasal discharge, Oral lesions, Throat pain, Hoarseness, Ear Pain, Running Nose, Epistaxis, Sinus Pain, Toothache, Odynophagia Respiratory: DENIES: Apneas, Cough, Snoring, Wheezing, Hemoptysis, Sputum production, Shortness of breath Cardiovascular: DENIES: Chest pain, Palpitations, Syncope, Dyspnea on Exertion , PND, Lower Extremity Edema, Orthopnea, Claudication Gastrointestinal: DENIES: Abdominal pain, Black stools, Bloody stools, Constipation, Diarrhea, Nausea, Vomiting, Difficulty Swallowing, Anorexia Genitourinary: DENIES: Abnormal vaginal bleeding, Dysmenorrhea, Dyspareunia, Sexual dysfunction, Urinary frequency, Urinary incontinence, Urgency, Hematuria , Dysuria, Nocturia, Vaginal discharge Musculoskeletal: DENIES: Joint pain, Muscle aches, Stiffness, Joint Swelling, Back pain, Neck pain Integumentary: DENIES: Abnormal pigmentation, Pruritus, Rash, Nail changes, Breast masses, Breast skin changes, Nipple discharge Hematologic/lymphatic: DENIES: Bruising, Lymphadenopathy Immunologic/allergic: DENIES: Eczema, Urticaria Neurologic: DENIES: Abnormal gait, Headache, Localized weakness, Paresthesias, Seizures, Speech Problems, Tremor, Poor Balance Psychiatric: DENIES: Anxiety, Confusion, Mood changes, Depression, Hallucinations, Agitation, Suicidal Ideation, Homicidal Ideation, Delusions Past Family Social History Coded Allergies: No Known Allergies (Verified Allergy, Unknown, 08/03/17) No Active Prescriptions or Reported Meds Family Psych History No family psychiatric history Social History The patient was born and raised in [place], she lives in [facility] with her son, she is single, employed in a [employer], her highest level of education is 11th grade Patient's Strengths (min. 2) Family support Physical Exam No tremors, no EPS, no psychomotor retardation or agitation Vital Signs Vital Signs Date Time Temp Pulse Resp B/P (MAP) Pulse Ox O2 Delivery O2 Flow Rate FiO2 08/04/17 07:22 98.0 60 16 128/73 (91) 98 08/03/17 14:00 Room Air I/O 08/04/17 08/04/17 08/05/17 08:00 16:00 00:00 Intake Total 400 ml Balance 400 ml Lab Results Test 08/03/17 14:19 08/03/17 18:45 08/04/17 06:37 Urine Color LIGHT-YELLOW Urine Turbidity HAZY Urine pH 8.0 Urine Specific [place] 1.011 Urine Protein NEG mg/dL Urine Glucose (UA) NEG mg/dL Urine Ketones NEG mg/dL Urine Occult Blood NEG Urine Nitrite NEG Urine Bilirubin NEG Urine Urobilinogen LESS THAN 2.0 MG/DL Urine Leukocyte Esterase NEG Urine RBC 3 /hpf Urine WBC 2 /hpf Urine Squamous Epithelial Cells <1 /hpf Urine Amorphous Sediment FEW Urine Mucus FEW /lpf Microscopic Urinalysis Comment CATH-CULT NOT IND Urine Opiates Screen NEG Urine Barbiturates Screen NEG Urine Amphetamines Screen NEG Urine Benzodiazepines Screen NEG Urine Cocaine Screen NEG Urine Cannabinoids Screen NEG Ammonia 31 MCMOL/L Vitamin B12 Level 691 PG/ML Folate GREATER THAN 20.0 NG/ML Free Thyroxine 0.80 NG/DL Thyroid Stimulating Hormone 3rd Gen 1.100 uIU/ML Rapid Plasma Reagin NON-REACTIVE White Blood Count 5.3 TH/MM3 Red Blood Count 4.50 MIL/MM3 Hemoglobin 13.3 GM/DL Hematocrit 39.5 % Mean Corpuscular Volume 87.8 FL Mean Corpuscular Hemoglobin 29.5 PG Mean Corpuscular Hemoglobin Concent 33.6 % Red Cell Distribution Width 13.3 % Platelet Count 244 TH/MM3 Mean Platelet Volume 8.6 FL Neutrophils (%) (Auto) 54.8 % Lymphocytes (%) (Auto) 28.2 % Monocytes (%) (Auto) 9.1 % Eosinophils (%) (Auto) 6.9 % Basophils (%) (Auto) 1.0 % Neutrophils # (Auto) 2.9 TH/MM3 Lymphocytes # (Auto) 1.5 TH/MM3 Monocytes # (Auto) 0.5 TH/MM3 Eosinophils # (Auto) 0.4 TH/MM3 Basophils # (Auto) 0.1 TH/MM3 CBC Comment DIFF FINAL Differential Comment Blood Urea Nitrogen 12 MG/DL Creatinine 0.79 MG/DL Random Glucose 85 MG/DL Calcium Level 8.7 MG/DL Sodium Level 140 MEQ/L Potassium Level 4.1 MEQ/L Chloride Level 106 MEQ/L Carbon Dioxide Level 27.2 MEQ/L Anion Gap 7 MEQ/L Estimat Glomerular Filtration Rate 76 ML/MIN Mental Status Examination Appearance: Appropriate Consciousness: Alert Orientation: x4 Motor Activity: Normal gait Speech: Unremarkable Language: Adequate Fund of Knowledge: Adequate Attention and Concentration: Adequate Memory: Unremarkable Mood: Sad Affect: Appropriate, Blunt Thought Process & Associations: Intact Thought Content: Appropriate Hallucination Type: None Delusion Type: None Suicidal Ideation: No Suicidal Plan: No Suicidal Intention: No Homicidal Ideation: No Homicidal Plan: No Homicidal Intention: No Insight: Adequate Judgment: Adequate Assessment & Plan Problem List: (1) Major depressive disorder, recurrent ICD Codes: F33.9 - Major depressive disorder, recurrent, unspecified Assessment & Plan: On psychiatric evaluation today the patient does report symptoms of recurrent depression. She reports sad mood, difficulty sleeping at night, poor appetite, recurrent pessimistic thoughts, but she denies hopelessness, denies helplessness, denies suicidal and homicidal ideation. She denies anxiety, denies psychosis or joelle. Patient does not meet criteria for involuntary psychiatric admission at this moment. I will start trazodone 100 milligrams at bedtime to address insomnia and depression. Brief supportive psychotherapy provided. Assessment & Plan Estimated LOS: Gerson Costello MD Aug 04, 2017 12:51
== END 2017-08-04 12:36 | disposition home or self-care (01) ==
LOC: NEPD 10:32 → NEDA 14:28 → NEPFCDU 16:09
PROVIDERS: ADMIT Hospitalist; ATTEND Hospitalist
DX: S09.90XA Unspecified injury of head, initial encounter (principal); R41.82 Altered mental status, unspecified; R05 Cough; G47.00 Insomnia, unspecified; I11.9 Hypertensive heart disease without heart failure; R42 Dizziness and giddiness; R00.1 Bradycardia, unspecified; F33.9 Major depressive disorder, recurrent, unspecified; Z92.3 Personal history of irradiation; W22.8XXA Striking against or struck by other objects, initial encounter
CPT/HCPCS: 70250; 70450; 70553; 71045; 72040; 74018; 80048; 80053; 80307; 81001; 82140; 82607; 82746; 84439; 84443; 85025; 85610; 85730; 86592; 93005; 95819; 97161; 99285; A9579; G0378; G8987; G8988